=== PATIENT | male | born 1985 | race Caucasian/White ===

== ENCOUNTER 2022-12-30 18:39 | Emergency (ER) | payer OTHER ==
[2022-12-30] MEDS ORDERED: Ibuprofen 400 MG Tab PO ONE (19:25)
== END 2022-12-30 20:09 | disposition home or self-care (01) ==
LOC: JP.ED 18:39
DX: S63.501A Unspecified sprain of right wrist, initial encounter (principal); M25.522 Pain in left elbow; K21.9 Gastro-esophageal reflux disease without esophagitis; Z88.0 Allergy status to penicillin; Z86.16 Personal history of COVID-19; Z90.49 Acquired absence of other specified parts of digestive tract; V49.40XA Driver injured in collision with unspecified motor vehicles in traffic accident, initial encounter; Y92.410 Unspecified street and highway as the place of occurrence of the external cause
CPT/HCPCS: 73080-26-LT; 73080-LT; 73110-26-RT; 73110-RT; 73130-26-RT; 73130-RT; 99283